=== PATIENT | male | born 1955 | race Caucasian/White ===

== ENCOUNTER 2025-07-11 09:15 | Outpatient (CLI) | payer MEDICARE | END 2025-07-11 09:16 | disposition home or self-care (01) | LOC: CT 09:15 | PROVIDERS: ATTEND Family Medicine | DX: Z12.2 Encounter for screening for malignant neoplasm of respiratory organs (principal); F17.210 Nicotine dependence, cigarettes, uncomplicated | CPT/HCPCS: 71271 ==